=== PATIENT | male | born 1990 | race Caucasian/White ===

== ENCOUNTER 2017-10-23 10:07 | Day surgery (SDC) | payer OTHER ==
[2017-10-21 13:31] VITALS: BP 122/80
[~2017-10-23] VITALS: Ht 190.5 cm; Wt 88.6 kg
[~2017-10-23 10:07] MED LIST: BUPIVACAINE/PF 0.5% ONE; EPINEPHRINE 1 MG/ML, 1ML ONE
[2017-10-23] MEDS ORDERED: FENTANYL PF 100 MCG/2ML ONE ×3 (10:27→12:06)
[2017-10-23] MEDS ORDERED: MIDAZOLAM 1 MG/ML, 2ML ONE (10:27)
[2017-10-23] MEDS ORDERED: LACTATED RINGERS 1,000 ML IV SCH ×2 (10:28→11:52)
[2017-10-23 10:29] VITALS: BP 122/80
[2017-10-23] MEDS ORDERED: KETOROLAC 30 MG/1 ML ONE (11:07)
[2017-10-23] MEDS ORDERED: ONDANSETRON 2MG/ML, 2ML ONE (11:44)
[2017-10-23] MEDS ORDERED: ROCURONIUM 10 MG/ML,10ML ONE (11:44)
[2017-10-23] MEDS ORDERED: GLYCOPYRROLATE 0.2MG/1ML, 5ML ONE (11:44)
[2017-10-23] MEDS ORDERED: NEOSTIGMINE 1 MG/ML, 10ML ONE (11:44)
[2017-10-23] MEDS ORDERED: PROPOFOL 10 MG/ML, 20ML ONE (11:44)
[2017-10-23] MEDS ORDERED: SUCCINYLCHOLINE 20 MG/ML, 10ML ONE (11:44)
[2017-10-23] MEDS ORDERED: DEXAMETHASONE 4 MG/ML, 1ML ONE (11:44)
[2017-10-23] MEDS ORDERED: CEFAZOLIN 1,000 MG ONE (11:44)
[2017-10-23] MEDS ORDERED: METOPROLOL 1 MG/ML, 5ML IV PRN (12:00)
[2017-10-23] MEDS ORDERED: ONDANSETRON 2MG/ML, 2ML IVPush PRN ×2 (12:00)
[2017-10-23] MEDS ORDERED: MEPERIDINE/PF 25MG/0.5ML IVPush PRN (12:00)
[2017-10-23] MEDS ORDERED: HYDROcodone/APAP 7.5-325MG/15ML UDC PO PRN (12:00)
[2017-10-23] MEDS ORDERED: DIAZEPAM 5 MG/ML, 2ML IVPush PRN (12:00)
[2017-10-23] MEDS ORDERED: OXYcodone 5 MG/5 ML ORAL.SOL UDC PO PRN (12:00)
[2017-10-23] MEDS ORDERED: morphine SULFATE 10 MG/ML, 1ML IVPush PRN (12:00)
[2017-10-23] MEDS ORDERED: HYDROcodone/APAP 5/325 TABLET PO PRN (12:00)
[2017-10-23] MEDS ORDERED: ALBUTEROL SULFATE 2.5 MG/3 ML NPPB PRN (12:00)
[2017-10-23] MEDS ORDERED: hydrALAzine 20 MG/ML, 1ML IV PRN (12:00)
[2017-10-23] MEDS ORDERED: EPHEDRINE 50 MG/ML, 1ML IVPush PRN (12:00)
[2017-10-23] MEDS ORDERED: HYDROmorphone 1 MG/ML, 1ML IV PRN (12:00)
[2017-10-23] MEDS ORDERED: MIDAZOLAM 1 MG/ML, 2ML IV PRN (12:00)
[2017-10-23] MEDS ORDERED: ACETAMINOPHEN 325 MG TABLET PO PRN (12:00)
[2017-10-23] MEDS ORDERED: LABETALOL 5MG/ML, 20ML IV PRN (12:00)
[2017-10-23] MEDS ORDERED: PROMETHAZINE 25 MG/ML, 1ML IV PRN (12:00)
[2017-10-23] MEDS ORDERED: ACETAMINOPHEN 650 MG/20.3 ML UDC ONE (12:06)
[2017-10-23] MEDS ORDERED: OXYcodone 5 MG/5 ML ORAL.SOL UDC ONE (12:06)
[2017-10-23] MEDS: FENTANYL PF 100 MCG/2ML IV PRN ×2 (12:10→12:21)
== END 2017-10-23 15:30 | disposition home or self-care (01) ==
LOC: OUT 10:07
PROVIDERS: ATTEND Thoracic Surgery (Cardiothoracic Vascular Surgery)
DX: K40.90 Unilateral inguinal hernia, without obstruction or gangrene, not specified as recurrent (principal); D17.6 Benign lipomatous neoplasm of spermatic cord; Z88.1 Allergy status to other antibiotic agents
CPT/HCPCS: 49650; J0171; J0330; J0690; J1100; J1885; J2250; J2405; J2704; J2710; J3010; J3490; J7120; C1727; C1781